=== PATIENT | female | born 1955 | race Hispanic/Latino ===

== ENCOUNTER 2018-08-27 12:00 | Emergency (ER) | payer OTHER ==
[~2018-08-27] VITALS: Ht 165.1 cm; Wt 81.6 kg
[~2018-08-27 12:00] MED LIST: ALBUTEROL; AMOXICILLIN; FLONASE
--- OUTSIDE RECORDS SUMMARY | 2018-08-27 12:03 | XMS REPORT | Continuity of Care Document ---
Author Author [facility] Interface Address Unknown Phone Unavailable Problems Problem Status Onset Date Classification Date Reported Comments Source I83.812, R22.4 Active 07/24/2017 [facility] KNEE PAIN M25.569 Active 12/09/2015 [facility] 790.4; ELEVATED LIVER ENZYMES 571.8; AL Active 12/18/2012 [facility] ELEV TRANSAMINASE/LDH Active [facility] Medications Medication Details Route Status Patient Instructions Ordering Provider Order Date Source Allergies, Adverse Reactions, Alerts Substance Category Reaction Severity Reaction type Status Date Reported Comments Source Immunizations Immunization Date Given Site Status Last Updated Comments Source Results Order Name Results Value Reference Range Date Interpretation Comments Source Ext Lower Venous Doppler Bilat US Ext Lower Venous Doppler Bilat US Patient Name: JAGDISH BARNARD : 1955; Age: 61 years Female MR: [id number] Study: Ext Lower Venous Doppler Bilat US 07/27/2017 8:28 AM CDT CLINICAL INDICATION: - Bilateral leg swelling. old DVT. COMPARISON: None TECHNIQUE: Sonographic evaluation of the bilateral lower extremity veins was performed using high resolution B-mode imaging, along with pulse and color Doppler imaging. FINDINGS: Right lower extremity: The common femoral vein, femoral vein, popliteal vein and visualized posterior tibial/calf veins are patent and compressible. The saphenofemoral junction and visualized greater saphenous vein are patent and compressible. Left lower extremity: The common femoral vein, femoral vein, popliteal vein and visualized posterior tibial/calf veins are patent and compressible. The saphenofemoral junction and visualized greater saphenous vein are patent and compressible. IMPRESSION: No evidence of deep venous thrombosis within the bilateral lower extremities. SL: [id number] 07/27/2017 - - Read by: Mariela Turcios MD Dictated Date/time: 07/27/17 09:04 Electronically Signed by: Mariela Turcios MD 07/27/17 09:06 FINAL REPORT [facility] Knee wo contrast MRI Knee wo contrast MRI MR RIGHT KNEE WITHOUT CONTRAST HISTORY: knee pain, 60-year-old female reports knee pain and mechanical symptoms anteriorly for approximately 3 weeks, no specific injury COMPARISON: None available TECHNIQUE: Multiplanar, multisequence noncontrast imaging of the knee. FINDINGS: MENISCI: 1. Medial meniscus: Tiny radial oblique tear in the free edge of the posterior horn of the medial meniscus. 2. Lateral meniscus: Degenerative signal in the posterior root attachment of the lateral meniscus without evidence of discrete root tear. CARTILAGE: 3. Medial compartment cartilage: Normal. 4. Lateral compartment cartilage: Normal. 5. Patellofemoral cartilage: Moderate irregular thinning of the cartilage of the patellar apex without subchondral cystic change or reactive marrow edema. CRUCIATE LIGAMENTS: 6. Anterior cruciate ligament: Normal. 7. Posterior cruciate ligament: Normal. COLLATERAL LIGAMENTS: 8. Medial collateral ligament complex: Normal. 9. Lateral collateral ligament complex: Normal. EXTENSOR MECHANISM: 10. Intact patellar and quadriceps tendons. 11. No patellar tilt or subluxation. OTHER: 12. No fracture or marrow edema. 13. Small to moderate joint effusion is present. IMPRESSION: 1. Small radial oblique tear in the posterior horn of the medial meniscus. 2. Degenerative signal in the posterior root attachment of the lateral meniscus without discrete tear. 3. Moderate chondromalacia of the patellar apex. 4. Mild/moderate joint effusion. Thank you for referring your patient to [facility] and [facility]. SL: [id number] 12/13/2015 - - Read by: Marlo Rodriguez MD Dictated Date/time: 12/13/15 16:10 Electronically Signed by: Marlo Rodriguez MD 12/13/15 16:17 FINAL REPORT [facility] Abdomen w/wo contrast [facility] Abdomen w/wo contrast MRI MRI ABDOMEN without and with contrast: TECHNIQUE: Axial T1, T2, SSFSE, in phase, out of phase axial images and postcontrast dynamic T1-weighted gradient-echo sequences were performed. CLINICAL HX: Elevated liver function tests COMPARISON: No priors. FINDINGS: There is heterogeneous fatty infiltration of liver, best demonstrated on the in phase and out of phase images. There is greater fatty infiltration in the anterior segment of right lobe in comparison to the posterior segment of right lobe and the left lobe of liver. No discrete mass is evident in the liver. No abnormal enhancement is noted in the liver. Spleen, pancreas, both kidneys and both adrenals demonstrate normal morphology. Gallbladder is not visualized. No ascites is visualized in the upper abdomen. Lung bases are clear. Mild cardiomegaly. IMPRESSION: Heterogeneous fatty infiltration of liver. Mild cardiomegaly. SL:13 12/26/2012 - - Read by: Christiano Farfan Dictated Date/time: 12/27/12 09:41 Electronically Signed by: Christiano Farfan MD 12/27/12 09:57 FINAL REPORT [facility] Vital Signs Vital Sign Value Date Comments Source Encounters Location Location Details Encounter Type Encounter Number Reason For Visit Attending Provider ADM Date DC Date Status Source [facility] Outpatient [id number] Herman Packer 12/13/2015 12/14/2015 [facility] Outpatient [id number] Cortes Rodriguez 07/27/2017 07/28/2017 [facility] Outpatient [id number] 790.4; ELEVATED LIVER ENZYMES 571.8; ALCOHOLIC FATTY L HERMAN PACKER Active [facility] Procedures Procedure Code Date Perfomer Comments Source
--- OUTSIDE RECORDS SUMMARY | 2018-08-27 12:03 | XMS REPORT | Summary of Care ---
Author Author [facility] Organization [facility] Address Unknown Phone Unavailable Encounter [facility] Encntr_alijavid(FIN) [id number] Date(s): 07/27/17 - 07/27/17 [facility] [address] [place] [address]- Discharge Disposition: Home or Self Care Attending Physician: Cortes Rodriguez MD Referring Physician: Cortes Rodriguez MD Vital Signs No data available for this section Problem List No data available for this section Allergies, Adverse Reactions, Alerts No data available for this section Medications No data available for this section Results No data available for this section Immunizations No data available for this section Procedures No data available for this section Social History No data available for this section Assessment and Plan No data available for this section
--- OUTSIDE RECORDS SUMMARY | 2018-08-27 12:03 | XMS REPORT | Summary of Care ---
Author Author [facility] Organization [facility] Address Unknown Phone Unavailable Encounter [facility] Encntr_alijavid(FIN) [id number] Date(s): 12/13/15 - 12/13/15 [facility] [address] [place] [address]- Discharge Disposition: Home or Self Care Attending Physician: Herman Suarez MD Referring Physician: Herman Suarez MD Vital Signs No data available for [...]
[2018-08-27] MEDS ORDERED: IBUPROFEN 600 MG TAB PO STA (12:56)
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
[2018-08-27] MEDS ORDERED: CYCLOBENZAPRINE5 MG PO (14:13)
[2018-08-27] MEDS ORDERED: ULTRAM50 MG PO (14:13)
== END 2018-08-27 16:19 | disposition home or self-care (01) ==
LOC: ER 12:00
DX: M54.2 Cervicalgia (principal); S16.1XXA Strain of muscle, fascia and tendon at neck level, initial encounter; S40.012A Contusion of left shoulder, initial encounter; S20.219A Contusion of unspecified front wall of thorax, initial encounter; V43.52XA Car driver injured in collision with other type car in traffic accident, initial encounter; Y92.488 Other paved roadways as the place of occurrence of the external cause
CPT/HCPCS: 71046; 72125; 99283

== ENCOUNTER 2024-05-05 11:05 | Emergency (ER) | payer MEDICARE, OTHER ==
[~2024-05-05] VITALS: Ht 165.1 cm; Wt 74.8 kg
[~2024-05-05 11:05] MED LIST changes: +CYCLOBENZAPRINE5 MG PO; +ULTRAM 50MG50 MG PO; +ULTRAM50 MG PO
[2024-05-05 11:22] VITALS: PULSE 76; RESP 18; TEMP 97.8
[2024-05-05] MEDS ORDERED: MACROBID 100 M100 MG PO (12:11)
[2024-05-05 12:26] VITALS: BP 128/74; PULSE 76; RESP 17; O2SAT 100
== END 2024-05-05 12:29 | disposition home or self-care (01) ==
LOC: ER 11:43
DX: R35.0 Frequency of micturition (principal); N39.0 Urinary tract infection, site not specified; I10 Essential (primary) hypertension; E11.9 Type 2 diabetes mellitus without complications
CPT/HCPCS: 99283